=== PATIENT | female | born 1970 | race Caucasian/White ===

== ENCOUNTER 2016-12-18 14:17 | Emergency (ER) | payer OTHER ==
--- NOTE | 2016-12-18 15:32 | ER Document Report ---
ED Medical Screen (RME) - General Chief Complaint: Pain All Over Stated Complaint: BODY PAIN Time Seen by Provider: 12/18/16 15:25 Mode of Arrival: Ambulatory Information source: Patient Notes: Patient is a 46 year old female with a history of Fibromyalgia and Rheumatoid Arthritis presents to the ED with complaints of generalized body aches with onset yesterday. Patient states she left all of her daily medication in [place]. Patient denies a fever. TRAVEL OUTSIDE OF THE U.S. IN LAST 30 DAYS: No - HPI Associated Symptoms: Other - see above - Related Data Allergies/Adverse Reactions: codeine [Codeine] Allergy (Verified 12/18/16 14:25) Penicillins Allergy (Verified 12/18/16 14:25) Sulfa (Sulfonamide Antibiotics) Allergy (Verified 12/18/16 14:25) vancomycin [Vancomycin] Allergy (Verified 12/18/16 14:25) Past Medical History - General Information source: Patient - Social History Chew tobacco use (# tins/day): No Frequency of alcohol use: None Drug Abuse: None - Past Medical History Cardiac Medical History: Reports: Hx Hypertension Renal/ Medical History: Denies: Hx Peritoneal Dialysis Musculoskeltal Medical History: Reports Hx Arthritis - Rheumatoid, Reports Hx Fibromyalgia Past Surgical History: Reports: Hx Appendectomy, Hx Cholecystectomy, Hx Hysterectomy - Immunizations Immunizations up to date: Yes Hx Diphtheria, Pertussis, Tetanus Vaccination: Yes - 2012 Review of Systems - Review of Systems Constitutional: No symptoms reported EENT: No symptoms reported Cardiovascular: No symptoms reported Respiratory: No symptoms reported Gastrointestinal: No symptoms reported Genitourinary: No symptoms reported Female Genitourinary: No symptoms reported Musculoskeletal: See HPI, Other - generalized body aches Skin: No symptoms reported Hematologic/Lymphatic: No symptoms reported Neurological/Psychological: No symptoms reported Physical Exam - Vital signs Vitals: Temp Pulse Resp BP Pulse Ox 97.9 F 82 16 150/90 H 100 12/18/16 14:25 12/18/16 14:25 12/18/16 14:25 12/18/16 14:25 12/18/16 14:25 - General General appearance: Anxious - Respiratory Respiratory status: No respiratory distress Breath sounds: Normal - Cardiovascular Rhythm: Regular Heart sounds: Normal auscultation Murmur: No Course - Vital Signs Vital signs: Temp Pulse Resp BP Pulse Ox 97.9 F 82 16 150/90 H 100 12/18/16 14:25 12/18/16 14:25 12/18/16 14:25 12/18/16 14:25 12/18/16 14:25 Scribe Documentation - Scribe Written by Puma:: puma Guallpa, 12/18/2016, 1532 acting as scribe for :: Prasad
[2016-12-18] MEDS ORDERED: OXYCODONE-ACETAMINOPHEN 5-325 MG TABLET PO ONE (15:34)
[2016-12-18] MEDS ORDERED: TIZANIDINE HCL 4 MG TABLET PO ONE (15:35)
[2016-12-18 16:02] LABS: HEMATOCRIT 37.9 % (36.0-47.0); HEMOGLOBIN 12.9 g/dL (12.0-15.5); HGB HCT DIFFERENCE 0.8; MEAN CORPUSCULAR HEMOGLOBIN 34.6 pg (27.0-33.4); MEAN CORPUSCULAR HGB CONC 34.1 g/dL (32.0-36.0); MEAN CORPUSCULAR VOLUME 102 fl (80-97); RED BLOOD COUNT 3.73 10^6/uL (3.72-5.28); RED CELL DISTRIBUTION WIDTH 13.2 % (11.5-14.0); WHITE BLOOD COUNT 2.3 10^3/uL (4.0-10.5)
[2016-12-18 16:18] LABS: ANION GAP 10 (5-19); BLOOD UREA NITROGEN 18 mg/dL (7-20); CARBON DIOXIDE 28 mmol/L (22-30); CHLORIDE 103 mmol/L (98-107); CREATININE RESULT 0.66 mg/dL (0.52-1.25); GLUCOSE 96 mg/dL (75-110); POTASSIUM 4.4 mmol/L (3.6-5.0); SODIUM 140.9 mmol/L (137-145)
[2016-12-18 16:39] LABS: ERYTHROCYTE SEDIMENTATION RATE 42 mm/hr (0-20)
[2016-12-18 16:45] LABS: BAND NEUTROPHILS % (MANUAL) 1 % (3-5); BASOPHILS % (MANUAL) 2 % (0-2); EOSINOPHILS % (MANUAL) 4 % (0-6); LYMPHOCYTES % (MANUAL) 51 % (13-45); TOTAL CELLS COUNTED 100
[2016-12-18 16:50] LABS: POLYCHROMASIA SLIGHT
[2016-12-18 16:51] LABS: ANISOCYTOSIS SLIGHT; STOMATOCYTES SLIGHT
--- NOTE | 2016-12-18 17:01 | ER Document Report ---
ED General Pain - General Chief Complaint: Pain All Over Stated Complaint: BODY PAIN Time Seen by Provider: 12/18/16 15:25 Mode of Arrival: Ambulatory Information source: Patient TRAVEL OUTSIDE OF THE [place].S. IN LAST 30 DAYS: No - HPI Patient complains to provider of: body aches Onset: Yesterday Onset/Duration: Gradual Quality of pain: Achy Severity: Mild Pain Level: 2 Context: General body pain, Joint pain Similar symptoms previously: Yes Recently seen / treated by doctor: No Notes: Patient is a 46-year-old female with a history of fibromyalgia and rheumatoid arthritis who is visiting the area from [place], she presents to the emergency room today complaining of generalized body aches and joint pain that started yesterday evening, she reports that she unfortunately does not have her medication with her, she will be returning to [place] on Sunday, patient denies a fever or chills, no nausea, vomiting or diarrhea, no cough, cold or congestion - Related Data Allergies/Adverse Reactions: codeine [Codeine] Allergy (Verified 12/18/16 14:25) Penicillins Allergy (Verified 12/18/16 14:25) Sulfa (Sulfonamide Antibiotics) Allergy (Verified 12/18/16 14:25) vancomycin [Vancomycin] Allergy (Verified 12/18/16 14:25) Past Medical History - General Information source: Patient - Social History Smoking Status: Never Smoker Chew tobacco use (# tins/day): No Frequency of alcohol use: None Drug Abuse: None Family History: Reviewed & Not Pertinent Patient has suicidal ideation: No Patient has homicidal ideation: No - Past Medical History Cardiac Medical History: Reports: Hx Hypertension Renal/ Medical History: Denies: Hx Peritoneal Dialysis Musculoskeltal Medical History: Reports Hx Arthritis - Rheumatoid, Reports Hx Fibromyalgia Past Surgical History: Reports: Hx Appendectomy, Hx Cholecystectomy, Hx Hysterectomy - Immunizations Immunizations up to date: Yes Hx Diphtheria, Pertussis, Tetanus Vaccination: Yes - 2012 Review of Systems - Review of Systems Constitutional: No symptoms reported EENT: No symptoms reported Cardiovascular: No symptoms reported Respiratory: No symptoms reported Gastrointestinal: No symptoms reported Genitourinary: No symptoms reported Female Genitourinary: No symptoms reported Musculoskeletal: See HPI Skin: No symptoms reported Hematologic/Lymphatic: No symptoms reported Neurological/Psychological: No symptoms reported -: Yes All other systems reviewed and negative Physical Exam - Vital signs Vitals: Temp Pulse Resp BP Pulse Ox 97.9 F 82 16 150/90 H 100 12/18/16 14:25 12/18/16 14:25 12/18/16 14:12/18/16 14:12/18/16 14:25 Interpretation: Normal - General General appearance: Appears well, Alert - HEENT Head: Normocephalic, Atraumatic Eyes: Normal Pupils: PERRL - Respiratory Respiratory status: No respiratory distress Chest status: Nontender Breath sounds: Normal Chest palpation: Normal - Cardiovascular Rhythm: Regular Heart sounds: Normal auscultation Murmur: No - Abdominal Inspection: Normal Distension: No distension Bowel sounds: Normal Tenderness: Nontender Organomegaly: No organomegaly - Back Back: Normal, Nontender - Extremities General upper extremity: Normal inspection, Nontender, Normal color, Normal ROM , Normal temperature General lower extremity: Normal inspection, Nontender, Normal color, Normal ROM , Normal temperature, Normal weight bearing. No: Luis's sign - Neurological Neuro grossly intact: Yes Cognition: Normal Orientation: AAOx4 Heaven Coma Scale Eye Opening: Spontaneous Heaven Coma Scale Verbal: Oriented Heaven Coma Scale Motor: Obeys Commands Heaven Coma Scale Total: 15 Speech: Normal Motor strength normal: LUE, RUE, LLE, RLE Sensory: Normal - Psychological Associated symptoms: Normal affect, Normal mood - Skin Skin Temperature: Warm Skin Moisture: Dry Skin Color: Normal Course - Re-evaluation Re-evalutation: 12/18/16 16:57 Laboratory findings were discussed at bedside including a decrease in white count to 2.3, patient reports that she takes Percocet and Zanaflex at home for control of her symptoms, which she does not have with her from [place], I advised patient that I will give her a prescription for a few days worth of these medications but that in the future she will have to follow-up with her primary care provider when she returns back to [place], and that it would be unlikely that the emergency room would give her similar prescriptions if she were to return in the near future, patient acknowledges understanding and agreement with this plan - Vital Signs Vital signs: Temp Pulse Resp BP Pulse Ox 97.9 F 82 16 150/90 H 100 12/18/16 14:25 12/18/16 14:25 12/18/16 14:25 12/18/16 14:25 12/18/16 14:25 - Laboratory Result Diagrams: 12/18/16 15:45 12/18/16 15:45 Laboratory results interpreted by me: 12/18/16 15:45 WBC 2.3 L MCV 102 H MCH 34.6 H Seg Neuts % (Manual) 13 L Band Neutrophils % 1 L Lymphocytes % (Manual) 51 H Monocytes % (Manual) 26 H Abs Neuts (Manual) 0.3 L ESR 42 H Discharge - Discharge Clinical Impression: Rheumatoid arthritis Qualifiers: Rheumatoid arthritis location: multiple sites Rheumatoid factor presence: unspecified presence Qualified Code(s): M06.9 - Rheumatoid arthritis, unspecified Condition: Stable Disposition: HOME, SELF-CARE Instructions: Chronic Pain Control ([facility]), Pain Management, Myalagia (Muscle Pain) ([facility]), Arthralgia ([facility]) Additional Instructions: Follow up with your primary care provider in one to 2 days. Return to the emergency room immediately if symptoms worsen or any additional concerns. Prescriptions: Oxycodone HCl/Acetaminophen [Percocet 5-325 mg Tablet] 1 - 2 tab PO ASDIR PRN # 15 tablet PRN Reason: Tizanidine HCl [Zanaflex] 2 mg PO DAILY #5 capsule
[2016-12-18 17:12] VITALS: BP 129/82
[2016-12-19 15:40] LABS: PATH REVIEW PATHOLOGIST REVIEWED
== END 2016-12-18 17:10 | disposition home or self-care (01) ==
LOC: ER 14:17
DX: M06.9 Rheumatoid arthritis, unspecified (principal); M79.1 Myalgia; I10 Essential (primary) hypertension; Z88.6 Allergy status to analgesic agent; Z88.0 Allergy status to penicillin; Z88.2 Allergy status to sulfonamides; Z88.3 Allergy status to other anti-infective agents; Z90.49 Acquired absence of other specified parts of digestive tract; Z90.710 Acquired absence of both cervix and uterus
CPT/HCPCS: 99283; 36415; 85025; 85652; 80048; J3490

== ENCOUNTER 2018-05-10 14:48 | Emergency (ER) | payer OTHER ==
[2018-05-10] MEDS ORDERED: METHYLPREDNISOLONE INJ 125 MG/2 ML SDV IV ONE (15:32)
[2018-05-10] MEDS ORDERED: ONDANSETRON HCL INJ/PF 4 MG/2 ML SDV IV ONE (15:32)
[2018-05-10] MEDS ORDERED: FENTANYL CITRATE INJ/PF 100 MCG/2 ML AMPUL IV ONE (15:32)
--- NOTE | 2018-05-10 15:34 | ER Document Report ---
ED Medical Screen (RME) - General Information source: Patient TRAVEL OUTSIDE OF THE U.S. IN LAST 30 DAYS: No <GLORIA BLOOD - Last Filed: 05/10/18 15:33> <ISELA ABREU - Last Filed: 05/10/18 19:09> - General Chief Complaint: Pain All Over Stated Complaint: FEVER Time Seen by Provider: 05/10/18 15:31 Notes: 48 years old female with a history of lupus currently on Plaquenil, presents today with 2 weeks history of gradual flareup of lupus with facial rash facial pain general body aches and pain. Joint pain. No fever chills. She is on doxycycline. For the facial rash presumed folliculitis. Also taking 20 mg of prednisolone for the last 2 weeks. Painful facial rash noted which is erythematous macular nonblanching. (GLORIA BLOOD) - Related Data Allergies/Adverse Reactions: codeine [Codeine] Allergy (Verified 05/10/18 14:49) Penicillins Allergy (Verified 05/10/18 14:49) Sulfa (Sulfonamide Antibiotics) Allergy (Verified 05/10/18 14:49) vancomycin [Vancomycin] Allergy (Verified 05/10/18 14:49) Past Medical History - Past Medical History Cardiac Medical History: Reports: Hx Hypertension Renal/ Medical History: Denies: Hx Peritoneal Dialysis Musculoskeltal Medical History: Reports Hx Arthritis - Rheumatoid, Reports Hx Fibromyalgia Past Surgical History: Reports: Hx Appendectomy, Hx Cholecystectomy, Hx Hysterectomy - Immunizations Immunizations up to date: Yes Hx Diphtheria, Pertussis, Tetanus Vaccination: Yes - 2012 <GLORIA BLOOD - Last Filed: 05/10/18 15:33> - Vital signs Vitals: Temp Pulse Resp BP Pulse Ox 98.5 F 102 H 16 142/87 H 98 05/10/18 15:01 05/10/18 15:01 05/10/18 15:01 05/10/18 15:01 05/10/18 15:01 Course - Laboratory Result Diagrams: 05/10/18 16:05 05/10/18 16:05 <ISELA ABREU - Last Filed: 05/10/18 19:09> - Vital Signs Vital signs: Temp Pulse Resp BP Pulse Ox 98.5 F 102 H 16 142/87 H 98 05/10/18 15:01 05/10/18 15:01 05/10/18 15:01 05/10/18 15:01 05/10/18 15:01 - Laboratory Laboratory results interpreted by me: 05/10/18 05/10/18 16:05 16:05 MCH 34.0 H Monocytes % 16.4 H ESR 70 H Potassium 5.1 H Carbon Dioxide 31 H C-Reactive Protein 28.8 H Doctor's Discharge <GLORIA BLOOD - Last Filed: 05/10/18 15:33> <ISELA ABREU - Last Filed: 05/10/18 19:09> - Discharge Clinical Impression: Folliculitis, Erythema multiforme Condition: Stable Disposition: HOME, SELF-CARE Instructions: Folliculitis ([facility]) Additional Instructions: At this point we discussed not much I can do on the pain treatment since you are allergic to the gabapentin and Lyrica and you are currently on pain management with the Percocet. Cannot think of anything in addition to add to that to make a more relaxed full. We can place you on some hydroxyzine which is similar in Benadryl but may work better for the itch. Just remember he can make you sleepy so do not take and drive. We are going to change to clindamycin and stop the doxycycline. Should you have any problems over the weekend return to ER for recheck. Prescriptions: Clindamycin HCl 300 mg PO QID #28 capsule Hydroxyzine HCl [Atarax 25 mg Tablet] 1 tab PO QID #25 tablet
[2018-05-10 16:31] LABS: ABSOLUTE EOSINOPHILS # (AUTO) 0.1 10^3/uL (0.0-0.6); ABSOLUTE LYMPHOCYTES (AUTO) 1.1 10^3/uL (0.5-4.7); ABSOLUTE MONOCYTES (AUTO) 0.8 10^3/uL (0.1-1.4); BASOPHILS % (AUTO) 0.2 % (0-2); EOSINOPHILS % (AUTO) 1.3 % (0-6); HEMATOCRIT 36.7 % (36.0-47.0); HEMOGLOBIN 12.9 g/dL (12.0-15.5); LYMPHOCYTES % (AUTO) 22.7 % (13-45); MEAN CORPUSCULAR HGB CONC 35.2 g/dL (32.0-36.0); MEAN CORPUSCULAR VOLUME 97 fl (80-97); MONOCYTES % (AUTO) 16.4 % (3-13); PLATELET COUNT 279 10^3/uL (150-450); RED CELL DISTRIBUTION WIDTH 12.9 % (11.5-14.0); SEGMENTED NEUTROPHILS % (AUTO) 59.4 % (42-78); TOTAL CELLS COUNTED % (AUTO) 100 %
[2018-05-10 16:52] LABS: ALANINE AMINOTRANSFERASE 24 U/L (9-52); ALBUMIN 4.3 g/dL (3.5-5.0); ALKALINE PHOSPHATASE 87 U/L (38-126); ANION GAP 14 (5-19); ASPARTATE AMINO TRANSFERASE 22 U/L (14-36); BILIRUBIN,DIRECT 0.3 mg/dL (0.0-0.4); BILIRUBIN,TOTAL 0.4 mg/dL (0.2-1.3); BLOOD UREA NITROGEN 15 mg/dL (7-20); C-REACTIVE PROTEIN 28.8 mg/L (<10.0); CALCIUM 9.9 mg/dL (8.4-10.2); CARBON DIOXIDE 31 mmol/L (22-30); CHLORIDE 98 mmol/L (98-107); GLUCOSE 109 mg/dL (75-110); POTASSIUM 5.1 mmol/L (3.6-5.0); TOTAL PROTEIN 7.5 g/dL (6.3-8.2)
[2018-05-10 17:13] LABS: ERYTHROCYTE SEDIMENTATION RATE 70 mm/hr (0-30)
[2018-05-10] MEDS ORDERED: HYDROMORPHONE HCL INJ/PF 2 MG/ML AMPULE IV ONE (17:38)
--- NOTE | 2018-05-10 18:47 | ER Document Report ---
ED Skin Rash/Insect Bite/Abscs - General Chief Complaint: Pain All Over Stated Complaint: FEVER Time Seen by Provider: 05/10/18 15:31 Mode of Arrival: Ambulatory Information source: Patient Notes: Patient is a 48-year-old female comes emergency room complaining of a facial rash. She also complains of multiple arthralgias. Patient has a long history of rheumatoid arthritis and lupus. She lives in [place] she came back here this past week because her son's gave to second child. Patient states she came appear to take care of this 3-year-old while the parents were going through the new . She is headed back to [place] this coming Sunday. Patient currently taking 20 mg a day of prednisone, Plaquenil daily , Percocet 03/06/2025 every 5 hours. She states that she noticed a rash breaking out on her face on her right over here from [place] and by the second day it was more pronounced and it has been getting worse. Rash is only located on her face. She calls rash pruritic and painful. She has a hard time describing the type of discomfort and pain she is feeling from this rash but says that she is "painful". This is not the first time the rashes appeared. She is noticing that this rash seems to produce itself in times of stress. She also states that this is a rash that is also starting to cause lesions on her lips. 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 She also tells me she is staying approximately 1-2 weeks out of every month in the hospital secondary to the lupus/rheumatoid presentations. TRAVEL OUTSIDE OF THE [place] IN LAST 30 DAYS: No - HPI Patient complains to provider of: Skin rash/lesion, Tender/swollen area Onset: Last week - 5 days Onset/Duration: Gradual Quality of pain: Achy, Burning, Throbbing Severity: Severe Pain Level: 4 Skin Character: Erythema, Papules, Patchy, Tenderness, Warm Skin Temperature: Warm Quality of rash: Itchy, Painful Identify cause: No Similar symptoms previously: Yes Recently seen / treated by doctor: No - Related Data Allergies/Adverse Reactions: codeine [Codeine] Allergy (Verified 05/10/18 14:49) Penicillins Allergy (Verified 05/10/18 14:49) Sulfa (Sulfonamide Antibiotics) Allergy (Verified 05/10/18 14:49) vancomycin [Vancomycin] Allergy (Verified 05/10/18 14:49) Past Medical History - General Information source: Patient - Social History Smoking Status: Never Smoker Cigarette use (# per day): No Chew tobacco use (# tins/day): No Smoking Education Provided: No Frequency of alcohol use: Rare Drug Abuse: None Family History: Reviewed & Not Pertinent Patient has suicidal ideation: No Patient has homicidal ideation: No - Past Medical History Cardiac Medical History: Reports: Hx Hypertension Renal/ Medical History: Denies: Hx Peritoneal Dialysis Musculoskeletal Medical History: Reports Hx Arthritis - Rheumatoid, Reports Hx Fibromyalgia Past Surgical History: Reports: Hx Appendectomy, Hx Cholecystectomy, Hx Hysterectomy, Hx Orthopedic Surgery - R knee - Immunizations Immunizations up to date: Yes Hx Diphtheria, Pertussis, Tetanus Vaccination: Yes - 2012 Review of Systems - Review of Systems Constitutional: No symptoms reported EENT: No symptoms reported Cardiovascular: No symptoms reported Respiratory: No symptoms reported Gastrointestinal: No symptoms reported Genitourinary: No symptoms reported Female Genitourinary: No symptoms reported Musculoskeletal: No symptoms reported Skin: See HPI, Lesions Hematologic/Lymphatic: No symptoms reported Neurological/Psychological: No symptoms reported -: Yes All other systems reviewed and negative Physical Exam - Vital signs Vitals: Temp Pulse Resp BP Pulse Ox 98.5 F 102 H 16 142/87 H 98 05/10/18 15:01 05/10/18 15:01 05/10/18 15:01 05/10/18 15:01 05/10/18 15:01 Interpretation: Hypertensive, Tachycardic - Notes Notes: PHYSICAL EXAMINATION: GENERAL: Patient is a well-nourished well-developed 48-year-old female who is in no apparent distress on physical exam this evening although she does appear uncomfortable. HEAD: , normocephalic. Examination of patient's complaint area generalized facial discomfort and pain shows a EYES: Pupils equal round and reactive to light, extraocular movements intact, conjunctiva are normal. ENT: Nares patent, oropharynx clear without exudates. Moist mucous membranes. NECK: Normal range of motion, supple without lymphadenopathy LUNGS: Breath sounds clear to auscultation bilaterally and equal. No wheezes rales or rhonchi. HEART: Tachycardic rate and rhythm without murmurs Female : deferred Musculoskeletal: Normal range of motion, patient has chronic joint pain. NEUROLOGICAL: Normal speech, normal gait. Normal sensory, motor exams PSYCH: Normal mood, normal affect. SKIN: Warm, patient's presentation of rash is not the textbook butterfly rash of lupus. Patient has a diffuse type of a rash across only the facial features. They are of varying sizes appear to have been pustular one time and and then with rupture become more reddened base with scales. All areas are tender to touch and have some light blanching to them. Somewhat resembles a folliculitis versus a discoid lupus type presentation. Course - Re-evaluation Re-evalutation: 05/10/18 18:57 Patient's lab actually come back relatively good. Her sed rate is 70 which she states is what it was last week. Her CRP was 28.8. Her white count was better than it was previously she states last week was 1.2 we are now at 500 WBC. So labs look much more improved. Given that this is been treated by a box printing machine operator with doxycycline and not getting better we are going to change slightly to a clindamycin for the antibiotic. We will leave patient on her 20 mg of prednisone daily. Patient is currently taking 10 mg of Percocet every 5 hours and is not much more than I can do for that since she is also on a pain management contract in [place]. I have made her more comfortable here with the fentanyl which was given from the position of front and then the 0.5 Dilaudid which made her more baseline. I will give her 0.[address] out the door for some sleep. As stated we will change her over to clindamycin and and she can come back if all else fails. I do not see were as raising the steroid dosage will help at this point. She is in need of her box printing machine operator and sewer maintenance supervisor and she will be seeing them when she is back on Sunday. - Vital Signs Vital signs: Temp Pulse Resp BP Pulse Ox 98.5 F 102 H 16 142/87 H 98 05/10/18 15:01 05/10/18 15:01 05/10/18 15:01 05/10/18 15:01 05/10/18 15:01 - Laboratory Result Diagrams: 05/10/18 16:05 05/10/18 16:05 Laboratory results interpreted by me: 05/10/18 05/10/18 16:05 16:05 MCH 34.0 H Monocytes % 16.4 H ESR 70 H Potassium 5.1 H Carbon Dioxide 31 H C-Reactive Protein 28.8 H Discharge - Discharge Clinical Impression: Folliculitis, Erythema multiforme Condition: Stable Disposition: HOME, SELF-CARE Instructions: Folliculitis ([facility]) Additional Instructions: At this point we discussed not much I can do on the pain treatment since you are allergic to the gabapentin and Lyrica and you are currently on pain management with the Percocet. Cannot think of anything in addition to add to that to make a more relaxed full. We can place you on some hydroxyzine which is similar in Benadryl but may work better for the itch. Just remember he can make you sleepy so do not take and drive. We are going to change to clindamycin and stop the doxycycline. Should you have any problems over the weekend return to ER for recheck. Prescriptions: Clindamycin HCl 300 mg PO QID #28 capsule Hydroxyzine HCl [Atarax 25 mg Tablet] 1 tab PO QID #25 tablet
[2018-05-10 19:22] VITALS: BP 134/72
== END 2018-05-10 19:22 | disposition home or self-care (01) ==
LOC: ER 14:48
DX: L73.9 Follicular disorder, unspecified (principal); L51.9 Erythema multiforme, unspecified; R21 Rash and other nonspecific skin eruption; R00.0 Tachycardia, unspecified; Z79.899 Other long term (current) drug therapy; I10 Essential (primary) hypertension
CPT/HCPCS: 99283; 96374; 96375; 36415; 85025; 85652; 86140; 80053; J3010; J2930; J1170; J2405